=== PATIENT | male | born 1995 | race African-American/Black ===

== ENCOUNTER 2018-10-05 18:01 | Emergency (ER) | payer SELFPAY ==
[~2018-10-05] VITALS: Ht 195.6 cm; Wt 79.4 kg
[2018-10-05 18:08] VITALS: BP 136/69
[2018-10-05] MEDS ORDERED: IBUP-1027 PO (18:28)
--- NOTE | 2018-10-05 18:29 | PHYS DOC ---
Past Medical History Past Medical History: No Pertinent History Past Surgical History: Other Additional Past Surgical Histo: knee surgery Additional Information: SMOKES 1 BLACK & MILD DAILY Alcohol Use: None Drug Use: None Adult General Chief Complaint Chief Complaint: RIB PAIN HPI HPI Patient is a 22 year old male who presents with right-sided rib pain has been ongoing for 3 days. The patient states he was playing basketball and elbowed in the ribs. The patient states his been hurting when he takes deep breaths. Rates his pain as 7 out of 10 in severity and sharp. Has been taking Tylenol. Review of Systems Review of Systems Constitutional: Denies fever or chills [] Eyes: Denies change in visual acuity, redness, or eye pain [] HENT: Denies nasal congestion or sore throat [] Respiratory: Denies cough or shortness of breath [] Cardiovascular: No additional information not addressed in HPI [] GI: Denies abdominal pain, nausea, vomiting, bloody stools or diarrhea [] : Denies dysuria or hematuria [] Musculoskeletal: Reports R sided R pain. Integument: Denies rash or skin lesions [] Neurologic: Denies headache, focal weakness or sensory changes [] Endocrine: Denies polyuria or polydipsia [] Complete systems were reviewed and found to be within normal limits, except as documented in this note. Current Medications Current Medications Current Medications Medications (Trade) Dose Ordered Sig/Sujey Start Time Stop Time Status Last Admin Dose Admin Ketorolac Tromethamine (Toradol 30mg Vial) 30 mg 1X ONCE 10/05/18 18:30 10/05/18 18:31 Allergies Allergies Allergies Coded Allergies Type Severity Reaction Last Updated Verified No Known Drug Allergies 11/06/13 No Physical Exam Physical Exam Constitutional: Well developed, well nourished, no acute distress, non-toxic appearance. [] HENT: Normocephalic, atraumatic, bilateral external ears normal, oropharynx moist, no oral exudates, nose normal. [] Eyes: PERRLA, EOMI, conjunctiva normal, no discharge. [] Neck: Normal range of motion, no tenderness, supple, no stridor. [] Cardiovascular:Heart rate regular rhythm, no murmur [] Lungs & Thorax: Bilateral breath sounds clear to auscultation [] Abdomen: Bowel sounds normal, soft, no tenderness, no masses, no pulsatile masses. [] Skin: Tenderness to palpation mid-axillary below nipple line on R side. Back: No tenderness, no CVA tenderness. [] Extremities: No tenderness, no cyanosis, no clubbing, ROM intact, no edema. [] Neurologic: Alert and oriented X 3, normal motor function, normal sensory function, no focal deficits noted. [] Psychologic: Affect normal, judgement normal, mood normal. [] Current Patient Data Vital Signs Vital Signs Date Time Temp Pulse Resp B/P (MAP) Pulse Ox O2 Delivery O2 Flow Rate FiO2 10/05/18 18:08 98.0 69 19 136/69 (91) 100 Room Air 98.0 EKG EKG [] Radiology/Procedures Radiology/Procedures [] Course & Med Decision Making Course & Med Decision Making Pertinent Labs and Imaging studies reviewed. (See chart for details) Discussed symptoms will patient. Will give Toradol and Incentive Spironomer. Offered Chest x-ray and patient declined. Dragon Disclaimer Dragon Disclaimer This electronic medical record was generated, in whole or in part, using a voice recognition dictation system. Departure Departure Impression: Primary Impression: Rib pain on right side Disposition: HOME, SELF-CARE Condition: STABLE Referrals: KAMI DUTTON MD (PCP) Patient Instructions: Incentive Spirometer Additional Instructions: Thank you for visiting [facility]. We appreciate you trusting us with your care. If any additional problems come up don't hesitate to return to visit us. Please follow up with your primary care provider so they can plan additional care if needed and know about the problem that you had. If symptoms worsen come back to the Emergency Department. Any concerning symptoms that start such as chest pain, shortness of air, weakness or numbness on one side of the body, running high fevers or any other concerning symptoms return to the ER. Please remember to take deep breaths and use the incentive spirometer as directed. Please fill your medications at any pharmacy and follow the prescription instructions. Scripts Ibuprofen (IBUPROFEN) 400 Mg Tablet 400 MG PO PRN Q6HRS PRN for INFLAMMATION for 5 Days, #20 TAB Prov: NATALIIA JOHNSON APRN 10/05/18 NATALIIA JOHNSON APRN Oct 05, 2018 18:29
[2018-10-05] MEDS ORDERED: KETOROLAC 30 MG/ML VIAL. IM ONE (18:30)
== END 2018-10-05 18:39 | disposition home or self-care (01) ==
LOC: ER 18:01
DX: R07.81 Pleurodynia (principal); F17.210 Nicotine dependence, cigarettes, uncomplicated
CPT/HCPCS: 96372; 99283; J1885

== ENCOUNTER 2018-11-05 18:03 | Emergency (ER) | payer SELFPAY ==
[~2018-11-05] VITALS: Ht 195.6 cm; Wt 79.4 kg
[~2018-11-05 18:03] MED LIST: IBUP-1027 PO
[2018-11-05 18:48] VITALS: BP 124/74
--- NOTE | 2018-11-05 18:59 | PHYS DOC ---
Past Medical History Past Medical History: No Pertinent History Past Surgical History: Other Additional Past Surgical Histo: knee surgery Alcohol Use: None Drug Use: None Adult General Chief Complaint Chief Complaint: SEXUALLY TRANSMITTED DISEASE HPI HPI Patient is a 23 year old male patient presenting to the ED today requesting STD treatment. Patient states he was exposed. He has no symptoms Review of Systems Review of Systems Constitutional: Denies fever or chills [] GI: Denies abdominal pain, nausea, vomiting, bloody stools or diarrhea [] : Request for STD treatment. Denies dysuria or hematuria [] Musculoskeletal: Denies back pain or joint pain [] Integument: Denies rash or skin lesions [] Neurologic: Denies headache, focal weakness or sensory changes [] All other systems were reviewed and found to be within normal limits, except as documented in this note. Allergies Allergies Allergies Coded Allergies Type Severity Reaction Last Updated Verified No Known Drug Allergies 11/06/13 No Physical Exam Physical Exam Constitutional: Well developed, well nourished, no acute distress, non-toxic appearance. [] Skin: Warm, dry, no erythema, no rash. [] Back: No tenderness, no CVA tenderness. [] Extremities: No tenderness, no cyanosis, no clubbing, ROM intact, no edema. [] Neurologic: Alert and oriented X 3, normal motor function, normal sensory function, no focal deficits noted. [] Psychologic: Affect normal, judgement normal, mood normal. [] EKG EKG [] Radiology/Procedures Radiology/Procedures [] Course & Med Decision Making Course & Med Decision Making Pertinent Labs and Imaging studies reviewed. (See chart for details) Patient was treated for STDs and discharge. Education provided. Dragon Disclaimer Dragon Disclaimer This electronic medical record was generated, in whole or in part, using a voice recognition dictation system. Departure Departure Impression: Primary Impression: Concern about STD in male without diagnosis Disposition: 01 HOME, SELF-CARE Condition: STABLE Referrals: NO PCP (PCP) follow up with the health department for STD concerns Patient Instructions: Sexually Transmitted Disease, [id number] Additional Instructions: You were treated for STDs. Please follow-up with the health department for further STD concerns. Use protection at all times NEIL DAILEY APRN Nov 05, 2018 18:59
[2018-11-05] MEDS ORDERED: cefTRIAXone IM 250 MG VIAL IM ONE ×2 (19:00)
[2018-11-05] MEDS ORDERED: metroNIDAZOLE 500 MG TABLET PO ONE (19:00)
== END 2018-11-05 19:16 | disposition home or self-care (01) ==
LOC: ER 18:03
DX: Z20.2 Contact with and (suspected) exposure to infections with a predominantly sexual mode of transmission (principal)
CPT/HCPCS: 96372; 99283; J0696